=== PATIENT | male | born 1985 | race Caucasian/White ===

== ENCOUNTER → 2021-02-11 16:48 | Outpatient (CLI) | payer BC, SELFPAY ==
[2021-02-11 16:49] LABS: Microscopic, Urine URINE MICROSCOPIC (MICROSCOPIC)
[2021-02-11 17:20] LABS: Basophils % 0.7 % (0.1-2.0); Eosinophils # 0.1 K/mm3 (0.0-0.4); Eosinophils % 1.3 % (0.1-12.0); Hematocrit 48.5 % (42.0-52.0); Lymphocytes # 1.4 K/mm3 (0.7-4.5); Lymphocytes % 25.3 % (10-50); Mean Corpuscular Hemoglobin 31.1 pg (27.0-31.2); Mean Corpuscular Volume 94.3 fl (80-94); Mean Platelet Volume 7.6 fl (7.4-10.4); Monocytes # 0.5 K/mm3 (0.1-1.0); Monocytes % 8.7 % (1.7-9.3); Neutrophils # 3.4 K/mm3 (1.8-7.8); Neutrophils % 64.1 % (37.0-80.0); Platelet Count 314 K/mm3 (142-424); Red Blood Count 5.14 M/mm3 (4.60-6.20); Red Cell Distribution Width 12.8 % (11.5-17.5); White Blood Count 5.4 K/mm3 (4.8-10.8)
[2021-02-11 17:28] LABS: Appearance,Urine CLEAR (Clear); Bilirubin,Urine Negative (Negative); Blood, Urine Negative (Negative); Color,Urine YELLOW (Yellow); Glucose,Urine (UA) Negative (Negative); Ketones,Urine Negative (Negative); Leukocyte Esterase,Urine Negative (Negative); Nitrate,Urine Negative (Negative); Protein,Urine Negative (Negative); Specific Gravity, Urine 1.025 (1.005-1.030); Urobilinogen,Urine 0.2 EU/dl (0.2)
[2021-02-11 18:17] LABS: Bacteria,Urine Trace /lpf
[2021-02-11 18:37] LABS: Anion Gap 12.7 mEq/L (5-15); Blood Urea Nitrogen 7 mg/dl (9-20); Calcium 9.9 mg/dl (8.4-10.2); Carbon Dioxide 31 mmol/L (22.0-30.0); Chloride 100 mmol/L (98-107); Estimated Glomerular Filt Rate 110 ml/min (>60); GFR (African American) 133 ML/MIN (>60); Glucose 93 mg/dl (74-100); Potassium 4.7 mmoL/L (3.5-5.1); Sodium 139 mmol/L (136-145)
[2021-02-11 18:39] LABS: Coronavirus 19 IgG Antibody Negative (Negative); Coronavirus 19 IgM Antibody Negative (Negative)
== END ==
PROVIDERS: Visit Provider Surgery
DX: Z01.812 Encounter for preprocedural laboratory examination (principal); Z11.52 Encounter for screening for COVID-19; K40.90 Unilateral inguinal hernia, without obstruction or gangrene, not specified as recurrent
CPT/HCPCS: 36415; 80048; 81001; 85025; 86328

== ENCOUNTER 2021-02-13 08:10 | Day surgery (SDC) | payer BC, SELFPAY ==
[2021-02-12 14:59] VITALS: BMI 19.8
[2021-02-13] VITALS (11 sets, daily range): BP systolic 101–131; BP diastolic 51–78; PULSE 62–87; RESP 16–18; TEMP 36.9–42.7; O2SAT 94–98
--- NOTE | 2021-02-13 10:29 | P.PN_ITS ---
[facility] Anesthesia Checklist - Patient Identification Patient Identification: Arm Band - Structural Data Admitted From: Home Planned Operative Procedure/s: Left Open Inguinal Hernial Repair Consent for Planned Operative Procedure(s) Verified: Yes Verified Documents: Surgical Consent, History and Physical - NPO Status Verified Time NPO: 00:00 - Additional verifications Anesthesia Reactions: No Hx Blood Transfusions: No Blood Transfusion Reaction: No - Airway Assessment C-Spine Mobility Assessed: Yes (mp2) TMJ Mobility Assessed: Yes Dentition: Good Dentition - Neurological Assessment Level of Consciousness: Awake, Alert - Anesthesia Plan Anesthesia Risk discussed: Yes Anesthesia Plan: Verified ASA Class: II Anesthesia Type: General [facility] History I have reviewed the patient's past medical history: Yes Medical History: Denies:: Cancer, Diabetes Mellitus Type 1, Diabetes Mellitus Type 2, Internal Pacemaker, MRSA, Seizures *Have you ever received a pneumonia vaccine?: No *Have you received a flu vaccine this season?: No Other Medical History: Denies: Blood Transfusion Reaction Anesthesia experience/problems:: nac Other Surgeries: Yes: No Previous Surgery. No: Pacemaker Amputation: No - *Social History Last grade of school completed: High school graduate Smoking Status: Current every day smoker Tobacco Type: smokeless tobacco # Packs/Day (cigarettes): 1 Alcohol Intake: current Alcohol Intake Frequency:: 3 or more drinks per day Substance Use Type: denies use *Occupational Status:: employed Housing: house Household Members: significant other *Travel in the last 8 weeks: None Family Hx:: No significant family history
--- NOTE | 2021-02-13 12:07 | P.OP_ITS ---
Date of procedure: 02/13/21 Pre-op Diagnosis:: Left inguinal hernia Post-op Diagnosis:: Same Procedure performed:: Open left inguinal hernia repair Surgeon:: Abdiaziz Jones MD [employer]USTRIAL TWISTING MACHINE OPERATOR:: Virgil Bustamante Anesthesia: FREDDY Estimated blood loss (mL): 15 Operative findings:: Large indirect defect with significant inflammatory response throughout the canal Operative note:: After informed consent was obtained the patient was taken to the operating room and placed in the supine position. General anesthesia was induced and his abdom en/groin/scrotum was prepped and draped in a sterile fashion. After infiltration local anesthetic an oblique left groin incision was made. The subcutaneous tissue was dissected with electrocautery through Mary's fascia to the level of the external aponeurosis. The external aponeurosis was opened with Metzenbaum scissors to the level of the external ring. The contents of the canal were carefully elevated. Significant thickening of tissue was noted. A large complex indirect hernia was noted. The hernia sac protruded through the scrotal margin. The hernia sac was carefully from surrounding tissue. The distal aspect was passed off for pathologic evaluation. The proximal aspect was inverted with placement of the PerFix plug after closing the defect with running Vicryl sutures. As stated above, a large PerFix plug was placed in the defect and secured with interrupted Ethibond. The PerFix overlay mesh was then secured to the shelving edge inferiorly and fascial margin superiorly with interrupted Ethibond. The wound was thoroughly irrigated. The external aponeurosis was reapproximated with running Vicryl suture. Mary's fascia was closed in the same manner. Skin was then reapproximated with 3-0 Stratafix. Steri-Strips were applied. The patient's anesthetic agents were reversed and he was transferred to recovery in stable condition. Condition: stable Disposition: PACU Specimens:: Hernia sac Complications:: No immediate
--- NOTE | 2021-02-13 12:13 | HMH.ANESI ---
[facility] Anesthesia Record Part I Intake, IV Amount: 1,200 Estimated blood loss (mL): 10 Urine output (mL): 100 Blood Pressure: 122/67 SaO2: 94 Pulse Rate: 66 Respiratory Rate: 16 Temperature: 99 F Patient is:: Drowsy, Stable Stable to PACU at:: 12:10
--- NOTE | 2021-02-16 08:32 | HMH.ANESII ---
[facility] Anesthesia Record Part II Discharge Time: 12:40 Destination: Surgical Day Care (OP Surgery) PACU nurse assessment reviewed?: Yes Patient Condition:: Good Anesthesia Complications:: None Swallowing reflex intact?: Yes Cyanosis?: No Blood Pressure: 122/72 Pulse Rate: 71 Temperature: 99 F Mental Status: Alert & Oriented Pain level:: 1 Nausea and/or vomitting:: None Intake, IV Amount: 1,000
[2021-02-16 08:33] VITALS: BP 122/72; PULSE 71; TEMP 37.2
== END 2021-02-13 13:33 | disposition home or self-care (01) ==
LOC: OR 08:12
PROVIDERS: PCP Family Medicine; Visit Provider Surgery
PROC: (CPT 49505; principal; 2021-02-13 09:30)
DX: K40.90 Unilateral inguinal hernia, without obstruction or gangrene, not specified as recurrent (principal); Z72.0 Tobacco use
CPT/HCPCS: 49505; 96374; J2405; J2710

== ENCOUNTER → 2021-10-12 13:07 | Outpatient (CLI) | payer BC, SELFPAY ==
--- NOTE | 2021-10-12 13:12 | US_ITS ---
PROCEDURE: US EXTREMITY LT LIMITED CLINICAL INDICATION: HERNIA COMPARISON: No exams were available for comparison FINDINGS: Targeted exam performed in the left lower quadrant over the area scarring. There is an area of decreased echogenicity with posterior acoustical shadowing in the abdominal wall consistent with an area of scarring. No abnormal fluid collection mass or other significant anomaly evident. IMPRESSION: Suspect some scarring in the left lower quadrant. No seroma or other significant anomaly. Dictated by: Deepak Amos MD 10/12/2021 16:37 Deepak Amos MD in [facility] 10/12/2021 16:37
== END ==
PROVIDERS: PCP Family Medicine; Visit Provider Physician Assistant
DX: R10.32 Left lower quadrant pain (principal); N50.812 Left testicular pain; Z98.890 Other specified postprocedural states; Z87.19 Personal history of other diseases of the digestive system
CPT/HCPCS: 76882